=== PATIENT | male | born 2000 | race Caucasian/White ===

== ENCOUNTER 2020-11-15 12:52 | Emergency (ER) | payer OTHER ==
[~2020-11-15] VITALS: Ht 170.2 cm; Wt 61.0 kg
[2020-11-15 13:12] VITALS: BP 117/66
[2020-11-15] MEDS ORDERED: SULF1TAB48 MT (15:36)
[2020-11-15] MEDS ORDERED: TC1U15 TP (15:36)
[2020-11-15] MEDS ORDERED: DOXY100T2 MT (15:36)
[2020-11-15] MEDS ORDERED: SULFAMETHOXAZOLE/TRIMETHOPRIM 800/160MG TABLET PO ONE (15:45)
[2020-11-15] MEDS ORDERED: DOXYCYCLINE HYCLATE 100MG CAPSULE PO ONE (15:45)
== END 2020-11-15 16:11 | disposition home or self-care (01) ==
LOC: ER 12:52
DX: L03.113 Cellulitis of right upper limb (principal); Z88.0 Allergy status to penicillin
CPT/HCPCS: 99283